=== PATIENT | female | born 1985 | race Caucasian/White ===

== ENCOUNTER → 2021-01-29 03:24 | Outpatient (CLI) | payer OTHER, SELFPAY ==
[2021-01-30 01:23] LABS: SARS-CoV-2 RNA PCR Negative
== END ==
PROVIDERS: Visit Provider Surgery Plastic and Reconstructive Surgery
DX: Z01.812 Encounter for preprocedural laboratory examination (principal); Z20.822 Contact with and (suspected) exposure to COVID-19
CPT/HCPCS: C9803; U0003; U0005

== ENCOUNTER 2021-02-01 00:53 | Day surgery (SDC) | payer OTHER, SELFPAY ==
--- NOTE | 2021-01-31 13:45 | WPDANESEPPF ---
Anes - Initial Pre Proc Eval Procedure: Operation Date: 02/01/21 07:30 Proposed Procedures p Bilateral Augmentation Mammoplasty - Jesús Bolton MD Date/Time: 01/31/21 13:45 Surgeon: Jesús Bolton MD Pre Op Diagnosis: micromastia Patient Data Age: 35 Gender: F Height: 1.63 m Weight: 53 kg Allergies Allergy/AdvReac Type Severity Reaction Status Date / Time No Known Drug Allergies Allergy Unknown Unknown Verified 02/01/21 06:41 Home Medications Medication Instructions Recorded Confirmed Type valacyclovir 1 gram tablet 500 mg PO BID 7 Days #14 tablet 06/16/20 02/01/21 Rx carisoprodol 350 mg tablet 350 mg PO TID PRN #21 tablet 01/15/21 01/29/21 Rx docusate sodium 100 mg capsule 100 mg PO BID #14 cap 01/15/21 01/29/21 Rx ondansetron HCl 4 mg tablet 4 mg PO Q6H #30 tablet 01/15/21 01/29/21 Rx oxycodone-acetaminophen 5 mg-325 1 tablet PO Q6H PRN #15 tablet 01/15/21 01/29/21 Rx mg tablet sertraline 100 mg PO DAILY 01/29/21 02/01/21 History Patient hx anesthesia problems: none Family hx anesthesia problems: none PMFSH Past Medical History Medical History (Updated 01/31/21 @ 13:46 by Leodan Boggs MD) Anxiety Depression PONV (postoperative nausea and vomiting) Surgical History Surgical History (Updated 10/16/20 @ 09:22 by Hyacinth Machuca) History of Social History Social History (Updated 10/16/20 @ 09:22 by Hyacinth Machuca) Smoking status: Never smoker Alcohol intake: current Substance use: never Substance use type: does not use Living arrangements: with family Gender identity (if verbalized by the patient): Female Sexual Orientation (if Verbalized by the Patient): Straight or Heterosexual Spiritual care concerns: No Anes - Eval Final PreProcedure Day of Procedure 01/31/21 13:45 Patient weight: normal Heart: regular rate and rhythm Lungs: clear to auscultation and normal air movement Airway: Mallampati scale class II Neurological: alert and oriented Last oral intake: >/= 8 hours ASA classification: II Emergent: no Anesthetic plan: proceed Anesthesia type and monitoring: general LMA Informed Consent: The patient's anesthetic plan and its attendant risks and benefits were discussed with the patient/family/POA. Questions were solicited and answers provided to the satisfaction of the patient/family/POA.
[2021-02-01] VITALS (12 sets, daily range): BP systolic 85–117; BP diastolic 49–75; PULSE 72–94; RESP 12–18; TEMP 36.6–37.3; O2SAT 99–100; BMI 19.9
--- NOTE | 2021-02-01 06:48 | WPDHPUPDATE1 ---
History and Physical Update Update Date/Time: 02/01/21 06:48 History and Physical has been reviewed, including an updated exam of the patient. There are NO changes in the patient's condition. Risks, benefits, and alternatives have been discussed and questions answered. Patient agrees to proceed with procedure.
[2021-02-01] MEDS: LACTATED RINGERS 1,000 ML 30 ML IV CONT ×3 (07:07→10:19)
--- NOTE | 2021-02-01 07:07 | W.PM.PROC2 ---
Procedure Note - Detailed Date of Procedure 02/01/21 Pre-op Diagnosis micromastia Post-op Diagnosis same Procedure Performed Bilateral Augmentation Mammplasty Surgeon Jesús Bolton MD Anesthesia general Findings Bilateral Submuscular (dual plane) augmentation Adina Oro cohesive 415cc silicone implants Right - REF# [id number] SN [id number] Left - REF# [id number] SN [id number] Description of Procedure She is here today for bilateral breast augmentation. Previously and again today the risks, benefits, alternatives were discussed in extensive detail. I wanted her to be very realistic about the risks involved as well as expectations. We discussed aftercare and what to monitor for. Made sure answered all of her questions to her satisfaction today and consent was obtained. Marked in the preoperative holding area with their verification. The patient was taken to the operating room placed supine on the operating table. Anesthesia was provided by anesthesiology. A surgical time-out was taken. We cleansed the skin and 1% lidocaine and 0.25% Marcaine with epinephrine was used anesthetize as a field block. She was prepped and draped in a standard sterile fashion. Tegaderm nipple Tomas were placed. A 15 blade used to make an incision along the inframammary fold. Dissection was continued at 45 degree angle until the chest wall as identified. I incised the pectoralis major along its inferior border and completely released the inferior border leaving the medial border intact. I created a subpectoral pocket in the appropriate dimensions based on our preoperative planning for the implant. I then copiously irrigated with saline solution and verified a strict hemostasis. Next the use a triple antibiotic and Betadine containing solution to irrigate the pocket. I washed my gloves with the triple antibiotic and Betadine solution. We washed the implant immediately upon opening it with this solution and only opened it when we needed it. I used implant funnel and no-touch technique. The implant was introduced into the pocket using the funnel. Having verified positioning of the implant this was closed using 2-0 Vicryl followed by 3-0 Monocryl in a running subcuticular 4-0 Monocryl followed by tissue glue. Fluffs, Mao wrap, and surgical bra were placed. Patient was awoke and taken to PACU without difficulty. All instrument sponge counts were correct at the end of the case. Estimated Blood Loss 10 Drains No Packing No Pathology none sent Complications No immediate complications Condition stable Disposition PACU
[2021-02-01] MEDS: SCOPOLAMINE 1.5 MG PATCH TRANSDERM (07:09)
--- NOTE | 2021-02-01 07:13 | SUR.PREOP ---
0645; RN IN WITH PT WHILE DR AWAD MARKED. SPOUSE PRESENT ALSO
[2021-02-01] MEDS: ceFAZolin 2 GM/D5W 50 ML 2 GM/50 ML BAG IVPB (07:23)
[2021-02-01] MEDS: BUPIVACAINE HCL 0.25% PF 30 ML VIAL INFILTRATE (07:23)
--- NOTE | 2021-02-01 08:47 | SUR.PREOP ---
LATE NOTE, 704; 500ml IVF BOLUS STARTED PER ORDERS
[2021-02-01] MEDS: fentaNYL CITRATE INJ (*CRX) 100 MCG/2 ML VIAL 25 MCG IV PUSH ×2 (09:19→09:31)
[2021-02-01] MEDS: oxyCODONE HCL (*CRX) 5 MG TAB IR PO (10:02)
--- NOTE | 2021-02-01 11:01 | SUR.PHASEII ---
LR BOLUS INITIATED FOR SBP 70'S. IMPROVED TO WNL.
== END 2021-02-01 11:09 | disposition home or self-care (01) ==
PROVIDERS: Visit Provider Surgery Plastic and Reconstructive Surgery
PROC: (CPT 19325; principal; 2021-02-01 07:30)
DX: Z41.1 Encounter for cosmetic surgery (principal); N64.82 Hypoplasia of breast; F41.8 Other specified anxiety disorders
CPT/HCPCS: 19325; A9270; J0131; J0690; J1100; J1170; J1580; J2250; J2405; J2704; J3010; J7120

== ENCOUNTER → 2021-04-24 08:56 | Outpatient (CLI) | payer BC, SELFPAY ==
--- NOTE | ~2021-04-24 | US_ITS ---
EXAMINATION: US right upper quadrant DATE: 04/24/2021 09:36 INDICATION: Abdominal pain. TECHNIQUE: Multiple grayscale and Doppler ultrasound images of the abdomen were obtained. COMPARISON: None FINDINGS: Abdominal aorta is normal in caliber. Inferior vena cava is normal. The visualized portions of the head, body, and tail of the pancreas are normal. The liver is normal without focal lesion. No liver surface nodularity. There is normal flow in main portal vein. The gallbladder is normal in siz e. No gallstones or gallbladder wall thickening. There was no sonographic Rajput sign. The common lani t is normal and measures 3 mm. Right kidney is normal. IMPRESSION: 1. Normal right upper quadrant ultrasound. Reviewed, dictated and finalized at location A. OSITION CLERK
== END ==
PROVIDERS: Visit Provider Family Medicine Sports Medicine
DX: R10.9 Unspecified abdominal pain (principal)
CPT/HCPCS: 76705